=== PATIENT | female | born 1995 | race African-American/Black ===

== ENCOUNTER 2017-11-18 07:49 | Emergency (ER) | payer MEDICAID ==
[~2017-11-18] VITALS: Ht 157.5 cm; Wt 67.1 kg
[2017-11-18 08:05] VITALS: BP 113/75
[2017-11-18 08:14] LABS: Urine Bacteria MOD /hpf (None Seen); Urine Blood 3+ /uL (Negative); Urine Mucus FEW (None Seen); Urine Specific Gravity 1.027 (1.001-1.035); Urine WBC 33 /hpf (0 - 5)
[2017-11-18] MEDS ORDERED: PHENAZOPYRIDINE HCL 100 MG TAB PO ONE (08:30)
== END 2017-11-18 08:53 | disposition home or self-care (01) ==
LOC: ER 07:51
DX: N39.0 Urinary tract infection, site not specified (principal); Z88.6 Allergy status to analgesic agent
CPT/HCPCS: 81001; 81025

== ENCOUNTER 2018-02-14 09:23 | Emergency (ER) | payer SELFPAY ==
[~2018-02-14] VITALS: Ht 160 cm; Wt 68.9 kg
[2018-02-14 10:10] LABS: Basophils # (auto) 0 uL; Basophils % (auto) 0.8 % (0.0-2.0); Eosinophils # (auto) 0.1 uL; Eosinophils % (auto) 2.3 % (0.0-7.0); Hematocrit 42.8 % (36.0-46.0); Hemoglobin 14.1 g/dL (12.2-16.2); Lymphocytes # (auto) 2.2 uL; Mean Corpuscular Hemoglobin 31.4 pg (28.0-32.0); Mean Corpuscular Volume 95.2 fL (80.0-100.0); Monocytes # (auto) 0.3 uL; Monocytes % (auto) 6.1 % (0.0-12.0); Neutrophils % (auto) 51.8 % (37.0-80.0); Platelet Count (auto) 265 10^3/uL (140-450); Red Cell Distribution Width 13.3 % (11.8-14.3); White Blood Cell 5.7 10^3/uL (4.4-10.8)
[2018-02-14 10:12] LABS: Urine Bacteria FEW /hpf (None Seen); Urine Blood Negative /uL (Negative); Urine Mucus FEW (None Seen); Urine Specific Gravity 1.021 (1.001-1.035); Urine WBC 5 /hpf (0 - 5)
[2018-02-14 10:23] LABS: Albumin 3.6 g/dL (3.4-5.0); BUN/Creatinine Ratio 8.6; Calcium 7.9 mg/dL (8.5-10.1); Potassium 4.1 mmol/L (3.5-5.1)
[2018-02-14 10:26] LABS: Bilirubin, Total 0.5 mg/dL (0.2-1.0); Total Protein 7.5 g/dL (6.4-8.2)
[2018-02-14 11:04] VITALS: BP 124/58
[2018-02-14] MEDS ORDERED: CEPHALEXIN 250 MG CAP PO ONE (11:15)
== END 2018-02-14 11:42 | disposition home or self-care (01) ==
LOC: ER 09:23
DX: O23.41 Unspecified infection of urinary tract in pregnancy, first trimester (principal); Z88.6 Allergy status to analgesic agent; Z3A.01 Less than 8 weeks gestation of pregnancy; Z88.8 Allergy status to other drugs, medicaments and biological substances
CPT/HCPCS: 36415; 80053; 81001; 84702; 85025

== ENCOUNTER 2018-05-11 15:16 | Emergency (ER) | payer MEDICAID ==
[~2018-05-11] VITALS: Ht 160 cm; Wt 74.4 kg
[2018-05-11 16:03] LABS: Basophils # (auto) 0.1 uL; Basophils % (auto) 0.7 % (0.0-2.0); Eosinophils # (auto) 0.1 uL; Eosinophils % (auto) 1.1 % (0.0-7.0); Hematocrit 42.1 % (36.0-46.0); Hemoglobin 14.1 g/dL (12.2-16.2); Lymphocytes # (auto) 2.4 uL; Lymphocytes % (auto) 26.1 % (10.0-50.0); Mean Corpuscular Hemoglobin 31.7 pg (28.0-32.0); Mean Corpuscular Hgb Conc. 33.4 g/dL (32.0-36.0); Mean Corpuscular Volume 94.8 fL (80.0-100.0); Monocytes # (auto) 0.6 uL; Monocytes % (auto) 6.3 % (0.0-12.0); Neutrophils % (auto) 65.8 % (37.0-80.0); Nucleated Red Blood Cells % 0.1 %; Platelet Count (auto) 290 10^3/uL (140-450); Red Blood Cells 4.44 10^6/uL (4.0-5.20); Red Cell Distribution Width 13.3 % (11.8-14.3)
[2018-05-11 16:04] LABS: Urine Bacteria NONE SEEN /hpf (None Seen); Urine Blood Negative /uL (Negative); Urine Specific Gravity 1.019 (1.001-1.035); Urine WBC 1 /hpf (0 - 5)
[2018-05-11 16:11] LABS: Calcium 8.6 mg/dL (8.5-10.1); Potassium 4.1 mmol/L (3.5-5.1)
[2018-05-11 16:13] LABS: BUN/Creatinine Ratio 9.3
[2018-05-11 16:16] LABS: Bilirubin, Total 0.1 mg/dL (0.2-1.0); Total Protein 7.5 g/dL (6.4-8.2)
[2018-05-11 21:03] VITALS: BP 110/62
== END 2018-05-11 21:02 | disposition home or self-care (01) ==
LOC: ER 15:20
DX: O26.892 Other specified pregnancy related conditions, second trimester (principal); R42 Dizziness and giddiness; Z3A.17 17 weeks gestation of pregnancy; Z88.6 Allergy status to analgesic agent
CPT/HCPCS: 36415; 80053; 81001; 84702; 85025

== ENCOUNTER 2018-09-02 12:12 | Observation (INO) | payer MEDICAID ==
[2018-09-02] MEDS: TERBUTALINE SULFATE 1 MG/ML 1ML VIAL SC SCH ×2 (13:05→13:30)
== END 2018-09-02 14:30 | disposition home or self-care (01) | DRG 566 ==
LOC: LDRP 12:12
PROVIDERS: ADMIT Specialist; ATTEND Specialist
DX: O62.9 Abnormality of forces of labor, unspecified (principal); Z3A.33 33 weeks gestation of pregnancy
CPT/HCPCS: 59025; 76815; 81002; 96372; G0378; J3105

== ENCOUNTER 2018-09-19 14:10 | Observation (INO) | payer MEDICAID ==
[2018-09-19] MEDS ORDERED: PREN-96 PO (17:17)
== END 2018-09-19 16:25 | disposition home or self-care (01) | DRG 566 ==
LOC: LDRP 14:10
PROVIDERS: ADMIT Specialist; ATTEND Specialist
DX: O26.893 Other specified pregnancy related conditions, third trimester (principal); R10.9 Unspecified abdominal pain; Z3A.35 35 weeks gestation of pregnancy
CPT/HCPCS: 59025; 81002; G0378

== ENCOUNTER 2018-09-21 06:16 | Observation (INO) | payer MEDICAID ==
[~2018-09-21] VITALS: Ht 160 cm; Wt 81.6 kg
[~2018-09-21 06:16] MED LIST: PREN-96 PO
[2018-09-21] MEDS ORDERED: NIF10C GT (06:47)
[2018-09-21] MEDS ORDERED: NIFEdipine 10 MG CAP PO ONE (07:08)
== END 2018-09-21 08:15 | disposition home or self-care (01) | DRG 566 ==
LOC: LDRP 06:16
PROVIDERS: ADMIT Obstetrics & Gynecology; ATTEND Obstetrics & Gynecology
DX: O42.913 Preterm premature rupture of membranes, unspecified as to length of time between rupture and onset of labor, third trimester (principal); Z3A.36 36 weeks gestation of pregnancy; Z88.6 Allergy status to analgesic agent; Z88.5 Allergy status to narcotic agent
CPT/HCPCS: 59025; 81002; G0378

== ENCOUNTER 2018-10-01 12:12 | Observation (INO) | payer MEDICAID ==
[~2018-10-01 12:12] MED LIST changes: +NIF10C GT
[2018-10-01] MEDS ORDERED: NIFEdipine 10 MG CAP PO ONE (13:30)
== END 2018-10-01 16:10 | disposition home or self-care (01) | DRG 566 ==
LOC: LDRP 12:12
PROVIDERS: ADMIT Obstetrics & Gynecology; ATTEND Obstetrics & Gynecology
DX: O62.9 Abnormality of forces of labor, unspecified (principal); Z3A.37 37 weeks gestation of pregnancy
CPT/HCPCS: G0378 ×2

== ENCOUNTER 2018-10-02 12:35 | Observation (INO) | payer MEDICAID ==
--- NOTE | 2018-10-02 13:55 | NUR ---
AMA Note JOSE QUIJANO states they want to leave the hospital Against Medical Advice (AMA). Patient encouraged to stay for further treatment/stabilization. Notified Dr. Riley by telephone with patient present of patient's wishes. Patient advised of the risks and benefits of leaving AMA uterine rupture, maternal and/or . Patient verbalized understanding of all risk and signed AMA form. Patient encouraged to return if symptoms do not improve ( contraction , decrease in movement, any leaking of fluids from vagina, bleeding ). Telephone order read back to Dr. Riley. Sign AMA form that patient is leaving hospital without being seen by Dr. Riley . orders carried out Dr. Riley aware patient is listening to phone conversation and aware of all risks. AMA form also read to patient. FOB also present and aware of risks. Well Blower Daniel Piedra also made aware. Patient took off toco and EFM and left unit with a copy of AMA form she signed
== END 2018-10-02 14:05 | disposition home or self-care (01) | DRG 566 ==
LOC: LDRP 12:35
PROVIDERS: ADMIT Obstetrics & Gynecology; ATTEND Obstetrics & Gynecology
DX: O62.9 Abnormality of forces of labor, unspecified (principal); Z3A.37 37 weeks gestation of pregnancy
CPT/HCPCS: 59025; 81002; G0378

== ENCOUNTER 2018-10-07 06:45 | Inpatient (IN) | payer MEDICAID ==
[2018-10-07] VITALS (15 sets, daily range): BP systolic 96–124; BP diastolic 52–106
[~2018-10-07] VITALS: Ht 160 cm; Wt 87.1 kg
[2018-10-07 08:29] LABS: Basophils # (auto) 0.1 uL; Basophils % (auto) 0.8 % (0.0-2.0); Eosinophils # (auto) 0.1 uL; Eosinophils % (auto) 0.9 % (0.0-7.0); Hematocrit 38.5 % (36.0-46.0); Hemoglobin 12.6 g/dL (12.2-16.2); Lymphocytes # (auto) 2.6 uL; Lymphocytes % (auto) 27.4 % (10.0-50.0); Mean Corpuscular Hgb Conc. 32.8 g/dL (32.0-36.0); Mean Corpuscular Volume 94.5 fL (80.0-100.0); Monocytes # (auto) 0.8 uL; Neutrophils % (auto) 62.9 % (37.0-80.0); Nucleated Red Blood Cells % 0.1 %; Platelet Count (auto) 299 10^3/uL (140-450); Red Blood Cells 4.07 10^6/uL (4.0-5.20); Red Cell Distribution Width 13.8 % (11.8-14.3); White Blood Cell 9.5 10^3/uL (4.4-10.8)
[2018-10-07 08:41] LABS: Urine Bacteria NONE SEEN /hpf (None Seen); Urine Blood 2+ /uL (Negative); Urine Mucus FEW (None Seen); Urine WBC 34 /hpf (0 - 5)
[2018-10-07] MEDS: LACTATED RINGER'S 1,000 ML IV SCH ×2 (08:42→15:16)
[2018-10-07] MEDS ORDERED: TERBUTALINE SULFATE 1 MG/ML 1ML VIAL SC PRN (08:45)
[2018-10-07 08:48] LABS: Albumin 2.5 g/dL (3.4-5.0); Calcium 8.1 mg/dL (8.5-10.1); INR < 0.93 (0.9-1.15); Partial Thromboplastin Time 24.4 sec (23.64-32.05); Potassium 3.7 mmol/L (3.5-5.1)
[2018-10-07 08:52] LABS: Bilirubin, Total 0.1 mg/dL (0.2-1.0); Total Protein 6.7 g/dL (6.4-8.2)
[2018-10-07] MEDS ORDERED: fentaNYL CITRATE 100 MCG/2 ML VL ONE (09:32)
[2018-10-07] MEDS ORDERED: MORPHINE SULF(PF) 0.5MG/ML 10ML VIAL ONE (09:32)
[2018-10-07] MEDS ORDERED: TETRACAINE 1% INJ 2 ML VIAL IJ ONE (09:36)
[2018-10-07] MEDS ORDERED: ONDANSETRON HCL 4 MG/2 ML VIAL IV ONE (10:00)
[2018-10-07] MEDS ORDERED: ePHEDrine SULFATE 50 MG/ML AMP IV ONE (10:00)
[2018-10-07] MEDS ORDERED: PHENYLEPHRINE HCL 10 MG/ML VL IV ONE (10:00)
[2018-10-07] MEDS ORDERED: DexAMETHasone SOD PHOS 10MG/1ML VIAL INJ IV ONE (10:00)
[2018-10-07] MEDS ORDERED: METOCLOPRAMIDE HCL 5MG/ml INJ 2ml VIAL IV ONE (10:00)
[2018-10-07] MEDS ORDERED: CLINDAMYCIN 600MG IV 50 ML IV ONE (10:37)
[2018-10-07] MEDS ORDERED: LACTATED RINGER'S 1,000 ML IV SCH (11:37)
[2018-10-07] MEDS ORDERED: ONDANSETRON HCL 4 MG/2 ML VIAL IV PRN ×2 (11:45)
[2018-10-07] MEDS ORDERED: CLINDAMYCIN 900MG IV 50 ML IV ONE (11:45)
[2018-10-07] MEDS ORDERED: HYDROmorphone HCL 2 MG/ML VL IV PRN ×2 (11:45)
[2018-10-07] MEDS: KETOROLAC TROMETH 30 MG/ML 1ML VIAL IV SCH ×2 (12:00→17:55)
--- NOTE | 2018-10-07 12:15 | NUR ---
Post Op for LDRP: Received patient from PACU via bed to room 7B. Patient A/A/Ox4, abdominal binder and bilateral SCD's are in place, IV fluids placed on pump and infusing per order, incisional site dressing clean/dry/intact and Sánchez Catheter to gravity draining clear yellow urine. Incentive Spirometer at bedside and instruction on proper use with return demonstration done by patient.
[2018-10-07] MEDS: CLINDAMYCIN 900MG IV 50 ML IV SCH ×2 (15:16→23:15)
[2018-10-07] MEDS: diphenhdrAMINE HCL 50 MG/1 ML VL IV PRN (17:56)
[2018-10-07] MEDS ORDERED: CLINDAMYCIN 900MG IV 50 ML IV SCH (20:00)
--- NOTE | 2018-10-07 23:45 | NUR ---
Ambulation: Patient OOB with standby assistance by RN. Patient ambulated to bathroom with steady gait. Lina care teaching provided with returned demonstration by patient. Clean gown provided and bed linen changed. Complete linen changed. Patient ambulated back to bed with steady gait and no distress noted.
[2018-10-08] VITALS (8 sets, daily range): BP systolic 92–110; BP diastolic 47–61
[2018-10-08] MEDS: diphenhdrAMINE HCL 50 MG/1 ML VL IV PRN ×3 (00:28→14:12)
[2018-10-08] MEDS: KETOROLAC TROMETH 30 MG/ML 1ML VIAL IV SCH ×3 (00:30→12:00)
[2018-10-08] MEDS: LACTATED RINGER'S 1,000 ML IV SCH (00:30)
[2018-10-08 05:59] LABS: Basophils # (auto) 0.1 uL; Basophils % (auto) 0.4 % (0.0-2.0); Eosinophils # (auto) 0 uL; Hematocrit 36.5 % (36.0-46.0); Lymphocytes # (auto) 1.8 uL; Lymphocytes % (auto) 9.7 % (10.0-50.0); Mean Corpuscular Hemoglobin 31.2 pg (28.0-32.0); Mean Corpuscular Hgb Conc. 32.9 g/dL (32.0-36.0); Mean Corpuscular Volume 94.8 fL (80.0-100.0); Monocytes # (auto) 1.6 uL; Monocytes % (auto) 8.9 % (0.0-12.0); Neutrophils # (auto) 15.1 uL; Nucleated Red Blood Cells % 0.1 %; Platelet Count (auto) 276 10^3/uL (140-450); Red Blood Cells 3.85 10^6/uL (4.0-5.20); Red Cell Distribution Width 13.8 % (11.8-14.3); White Blood Cell 18.6 10^3/uL (4.4-10.8)
--- NOTE | 2018-10-08 06:00 | NUR ---
Seymour catheter dc'd Order to discontinue seymour catheter. Seymour dc'd with clean technique following deflation of balloon. Patient tolerated well with no complaints of pain. Continue care.
[2018-10-08] MEDS ORDERED: BISACODYL 10 MG RECT SUPP PR PRN (10:00)
[2018-10-08] MEDS: DOCUSATE CALCIUM 240 MG CAP PO SCH (12:44)
[2018-10-08] MEDS: DOCUSATE SOD 100 MG CAP PO SCH ×2 (12:44→22:45)
[2018-10-08] MEDS: HYDROcodone-ACET 5/325MG TAB PO PRN ×2 (12:44→23:00)
[2018-10-08] MEDS: SIMETHICONE 80 MG CHEWABLE TABLET PO SCH ×3 (14:13→22:45)
[2018-10-08] MEDS: IBUPROFEN 800 MG TAB PO PRN (17:46)
[2018-10-09 03:00] VITALS: BP 106/68
[2018-10-09] MEDS: IBUPROFEN 800 MG TAB PO PRN ×2 (06:49→19:11)
[2018-10-09] MEDS: SIMETHICONE 80 MG CHEWABLE TABLET PO SCH ×3 (06:50→22:05)
[2018-10-09 07:15] VITALS: BP 105/47
[2018-10-09] MEDS: DOCUSATE SOD 100 MG CAP PO SCH ×2 (11:05→22:05)
[2018-10-09] MEDS: DOCUSATE CALCIUM 240 MG CAP PO SCH (11:05)
[2018-10-09 11:30] VITALS: BP 107/60
[2018-10-09] MEDS: HYDROcodone-ACET 5/325MG TAB PO PRN ×2 (13:51→22:06)
[2018-10-09 15:30] VITALS: BP 90/52
[2018-10-09 19:10] VITALS: BP 92/59
[2018-10-09 23:00] VITALS: BP 97/57
[2018-10-10 03:10] VITALS: BP 100/59
[2018-10-10] MEDS: IBUPROFEN 800 MG TAB PO PRN (03:39)
[2018-10-10] MEDS: HYDROcodone-ACET 5/325MG TAB PO PRN (05:26)
--- NOTE | 2018-10-10 06:45 | NUR ---
Opening Rounds: Pt resting comfortably in bed, morning assessment performed, incision is open to air pt states Tosha Rendon CNM removed maryuri and applied steri strips. Site is asymptomatic, well approximated with no drainage.
[2018-10-10 07:10] VITALS: BP 101/73
--- NOTE | 2018-10-10 10:05 | NUR ---
Discharge: Discharge instructions given as ordered. Pt encouraged to follow up with PHOTO EDITOR as instructed. All questions and concerns addressed. Patient verbalized understanding. Medication reconciliation completed and copy given to patient. All required/requested vaccines given and copies of vaccinations given to patient. Patient encouraged to prepare to depart unit.
[2018-10-10] MEDS: DOCUSATE CALCIUM 240 MG CAP PO SCH (10:13)
[2018-10-10] MEDS: DOCUSATE SOD 100 MG CAP PO SCH (10:13)
--- NOTE | 2018-10-10 11:15 | NUR ---
Discharge: Patient taken to vehicle via wheelchair with all personal belongings, accompanied by staff and family member. No distress noted at time of departure, no adverse changes in status since initial assessment.
[2018-10-11 11:08] LABS: RPR Non Reactive (Non Reactive)
== END 2018-10-10 11:15 | disposition home or self-care (01) | DRG 540 ==
LOC: OBSVTOIN 06:45 → LDRP 06:45
PROVIDERS: ADMIT Obstetrics & Gynecology; ATTEND Obstetrics & Gynecology
PROC: 10D00Z1 Extraction of Products of Conception, Low, Open Approach (ICD-10-PCS; principal; 2018-10-07 10:11)
DX: O34.211 Maternal care for low transverse scar from previous cesarean delivery (principal); O77.0 Labor and delivery complicated by meconium in amniotic fluid; Z37.0 Single live birth; Z3A.38 38 weeks gestation of pregnancy; Z88.6 Allergy status to analgesic agent; Z88.5 Allergy status to narcotic agent
CPT/HCPCS: 36415; 51702; 59025; 80053; 81001; 84112; 85025; 85610; 85730; 86592; 86850; 86900; 86901; 94762; 96361; 96365; 96366; 96374; 96375; G0378; J1100; J1885; J2405; J3490

== ENCOUNTER 2019-08-08 22:35 | Emergency (ER) | payer MEDICAID ==
[~2019-08-08] VITALS: Ht 157.5 cm; Wt 74.4 kg
[2019-08-09 00:14] VITALS: BP 94/59
[2019-08-09] MEDS ORDERED: methylPREDNISolone SOD SUCC 125 MG/2 ML VL IM ONE (00:30)
[2019-08-09] MEDS ORDERED: KETOROLAC TROMETH 60MG/2ML VIAL IM ONE (00:30)
== END 2019-08-09 01:50 | disposition home or self-care (01) ==
LOC: ER 22:35
DX: S83.92XA Sprain of unspecified site of left knee, initial encounter (principal); M23.8X2 Other internal derangements of left knee; Z88.5 Allergy status to narcotic agent; Z79.899 Other long term (current) drug therapy; X58.XXXA Exposure to other specified factors, initial encounter; Y93.89 Activity, other specified; Y92.89 Other specified places as the place of occurrence of the external cause; Y99.8 Other external cause status
CPT/HCPCS: 29505; 73562; 96372; 99284; J1885; J2930